=== PATIENT | female | born 1975 | race African-American/Black ===

== ENCOUNTER 2017-11-23 22:42 | Emergency (ER) | payer OTHER ==
[~2017-11-23] VITALS: Ht 162.6 cm; Wt 107.0 kg
[2017-11-23] MEDS ORDERED: SODIUM CHLORIDE 0.9% 1,000 ML IV ONE (23:19)
[2017-11-23] MEDS ORDERED: LORAZEPAM 2MG/ML CPJ IV ONE (23:30)
[2017-11-24 00:22] LABS: BASOPHILS % 0.7 % (0.0-2.0); EOSINOPHILS % 0.4 % (0.0-5.0); HEMATOCRIT. 38.7 % (36.0-48.0); HEMOGLOBIN. 13.3 g/dL (12.0-16.0); LYMPHOCYTES % 20.5 % (20.0-50.0); MEAN CORPUSCULAR HEMOGLOBIN 31.6 pg (28.0-32.0); MEAN CORPUSCULAR VOLUME 92.1 fL (81.0-99.0); MEAN PLATELET VOLUME 8.5 fl (7.4-10.4); MONOCYTES % 6.1 % (2.0-8.0); NEUTROPHILS % 72.3 % (40.0-76.0); PLATELET 309 x1000/uL (130-400); RED BLOOD CELL COUNT 4.21 mill/uL (4.2-5.4); RED CELL DISTRIBUTION WIDTH 13.3 % (11.6-14.6)
[2017-11-24 00:35] LABS: HCG SCREEN NEGATIVE
[2017-11-24 00:37] LABS: CHLORIDE 107 mEq/L (98-107)
[2017-11-24] MEDS ORDERED: POTASSIUM CHLORIDE 20MEQ TABLET SR PO ONE (00:45)
[2017-11-24 01:31] VITALS: BP 149/60
== END 2017-11-24 01:33 | disposition home or self-care (01) ==
LOC: ER 22:42
DX: F41.0 Panic disorder [episodic paroxysmal anxiety] (principal); E87.6 Hypokalemia
CPT/HCPCS: 36415; 80053; 84443; 84484; 84703; 85025; 93005; 96374; 99285; J2060; J7030; Z7610